=== PATIENT | female | born 1965 | race Caucasian/White ===

== ENCOUNTER → 2018-03-27 | Outpatient (CLI) | payer OTHER | LOC: FIMAGING 09:36 | PROVIDERS: ATTEND Physician Assistant Surgical | DX: M51.16 Intervertebral disc disorders with radiculopathy, lumbar region (principal) ==

== ENCOUNTER → 2018-04-16 | Outpatient (CLI) | payer OTHER | END | disposition home or self-care (01) | LOC: FIMAGING 14:56 | PROVIDERS: ATTEND Internal Medicine | DX: Z12.31 Encounter for screening mammogram for malignant neoplasm of breast (principal) ==

== ENCOUNTER 2018-08-07 15:04 | Emergency (ER) | payer OTHER ==
--- NOTE | 2018-08-07 15:28 | EDPHY ---
H & P Stated Complaint: lower abd pain for 10 days, today episode with blurred vision and high BP Time Seen by Provider: 08/07/18 15:20 HPI/ROS: CHIEF COMPLAINT: Abdominal pain, high blood pressure, blurry vision HISTORY OF PRESENT ILLNESS: Patient is a 53-year-old female who is been having abdominal discomfort for about the last [address] Finch with GI for a history of GERD and takes Pepcid. She is scheduled for follow-up endoscopy in a few weeks. She states that over the last 10 days she has developed some pain in her lower abdominal/waist area. She notices it when she stands up and feels that it is tight or pulling sensation. No dysuria. She saw her primary yesterday who checked a urinalysis that was negative. She has not had any tenderness. No fevers. No diarrhea. No vaginal bleeding or discharge. No vomiting but she has occasionally felt nauseous. She has a history of appendectomy. She also states that occasionally she has epigastric discomfort or fullness sensation. It does not feel similar to her heartburn. She also states that today she noticed her blood pressure was elevated and then felt like she was having blurry vision in both eyes. That has since resolved. No pain. 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 No recent trauma. No erythema. Severity: Moderate REVIEW OF SYSTEMS: Constitutional: denies: chills, fever, recent illness, recent injury EENTM: See HPI Respiratory: denies: cough, shortness of breath Cardiac: denies: chest pain, irregular heart rate, lightheadedness, palpitations Gastrointestinal/Abdominal: See HPI Genitourinary: denies: dysuria, frequency, hematuria, pain Musculoskeletal: denies: joint pain, muscle pain Skin: denies: lesions, rash, jaundice, bruising Neurological: denies: headache, numbness, paresthesia, tingling, dizziness, weakness Hematologic/Lymphatic: denies: blood clots, easy bleeding, easy bruising Immunologic/allergic: denies: HIV/AIDS, transplant 10 systems reviewed and negative except as noted EXAM: GENERAL: Well-appearing, well-nourished and in no acute distress. HEAD: Atraumatic, normocephalic. EYES: Pupils equal round and reactive to light, extraocular movements intact, sclera anicteric, conjunctiva are normal. ENT: TMs normal, nares patent, oropharynx clear without exudates. Moist mucous membranes. NECK: Normal range of motion, supple without lymphadenopathy or JVD. LUNGS: Breath sounds clear to auscultation bilaterally and equal. No wheezes rales or rhonchi. HEART: Regular rate and rhythm without murmurs, rubs or gallops. ABDOMEN: Soft, nontender, normoactive bowel sounds. No guarding, no rebound. No masses appreciated. BACK: No CVA tenderness, no spinal tenderness, step-offs or deformities EXTREMITIES: Normal range of motion, no pitting or edema. No clubbing or cyanosis. NEUROLOGICAL: Cranial nerves II through XII grossly intact. Normal speech, normal gait. 5/5 strength, normal movement in all extremities, normal sensation , normal reflexes PSYCH: Normal mood, normal affect. SKIN: Warm, dry, normal turgor, no visible rashes or lesions. Source: Patient - Personal History LMP (Females 10-55): Over 28 Days Ago - Medical/Surgical History Hx Asthma: No Hx Chronic Respiratory Disease: No Hx Diabetes: No Hx Cardiac Disease: No Hx Renal Disease: No Hx Cirrhosis: No Hx Alcoholism: No Hx HIV/AIDS: No Hx Splenectomy or Spleen Trauma: No Other PMH: sx: appy, tonsilectomy, thyroidectomy. thyroid CA with removal, GERD , recurrent corneal ulcerations - Family History Significant Family History: No pertinent family hx - Social History Smoking Status: Never smoked Alcohol Use: Sober Drug Use: None Constitutional: Initial Vital Signs Temperature (C) 36.4 C 08/07/18 15:15 Heart Rate 86 08/07/18 15:15 Respiratory Rate 18 08/07/18 15:15 Blood Pressure 170/118 H 08/07/18 15:15 O2 Sat (%) 94 08/07/18 15:15 O2 Delivery Mode Room Air Allergies/Adverse Reactions: bacitracin [From Neosporin] Allergy (Verified 08/07/18 15:15) Rash bacitracin zinc [From Neosporin] Allergy (Verified 08/07/18 15:15) Rash celecoxib [From Celebrex] Allergy (Verified 08/07/18 15:15) ITCH/FLUSHED erythromycin base [Erythromycin Base] Allergy (Verified 08/07/18 15:15) SEVERE GI Gadolinium-Containing Contrast Medi [Gadolinium-Containing Agents] Allergy ( Verified 08/07/18 15:15) Hives gramicidin D [From Neosporin] Allergy (Verified 08/07/18 15:15) Rash morphine [Morphine] Allergy (Verified 08/07/18 15:15) ELEVATED BLOOD PRESSURE/STIFF NECK neomycin sulfate [From Neosporin] Allergy (Verified 08/07/18 15:15) Rash Penicillins Allergy (Verified 08/07/18 15:15) Rash polymyxin B [From Neosporin] Allergy (Verified 02/15/15 09:25) Rash polymyxin B sulfate [From Neosporin] Allergy (Verified 02/15/15 09:25) Rash prednisolone [Prednisolone] Allergy (Verified 08/07/18 15:15) Itching prednisone [Prednisone] Allergy (Verified 08/07/18 15:15) FLUSHED/REDNESS JOEL/PALLOCK Allergy (Uncoded 08/07/18 15:15) Hives Home Medications: Medication Instructions Recorded Synthroid 75 mcg (RX) 02/15/15 Prevacid 08/07/18 Medical Decision Making - Diagnostics EKG Interpretation: An EKG obtained and was read and documented in trace view. Please see trace view for full reading and report. Sinus rhythm, no acute ischemic changes Imaging Results: Imaging Impressions Abdomen CT 08/07/18 15:25 Impression: 1. Constipation. 2. Multiple noncalcified nodules measuring up to 5 mm. If the patient is a smoker or is high risk, unenhanced low dose chest CT for follow up in 12 months is considered optional. Otherwise, no further follow up is needed per Fleischner Society criteria. 3. Cholelithiasis without evidence of cholecystitis. 4. Additional findings, as above. Findings discussed with VIKY RANDALL 08/07/2018 at 1701. Imaging: Discussed imaging studies w/ at home independent call center agent Radiologist ED Course/Re-evaluation: The pain vision is 30/20 and the right and 70/20 in the left which she states is baseline. 5:20 p.m. we had a long discussion about the CT results. She was unaware previously of gallstones. She has no epigastric tenderness currently. She does state that she occasionally has pain there. She will follow up with Dr. Finch about this as well. No secondary signs of infection on CT scan. Normal lab work today. She is also quite concerned about the pulmonary nodules. She has a history of thyroid cancer and some type of cyst in her right leg/bone. She will follow up with her primary for repeat lung scan in 1 year. Also she reports to me that her vision is completely normal. Her blood pressure is currently 160/80. Differential Diagnosis: Partial list of the Differential diagnosis considered include but were not limited to; constipation, adenitis, ovarian cyst, urinary tract infection, kidney stone and although unlikely based on the history and physical exam, I also considered cholecystitis, peptic ulcer disease, perforation, obstruction, ischemia, volvulus. I discussed these differential diagnoses and the plan with the patient as well as the usual and expected course. The patient understands that the diagnosis is provisional and that in medicine we are not always correct and that further workup is often warranted. Usual and customary warnings were given. All of the patient's questions were answered. The patient was instructed to return to the emergency department should the symptoms at all worsen or return, otherwise to followup with the physician as we discussed. - Data Points Laboratory Results: 08/07/18 15:56 POC Sodium 144 mEq/L mEq/L (135-145) POC Potassium 3.6 mEq/L mEq/L (3.3-5.0) POC Chloride 107.0 mEq/L mEq/L (97-110) POC Total CO2 28 mEq/L mEq/L (22-31) POC BUN 12 mg/dL mg/dL (7-23) POC Creatinine 0.8 mg/dL mg/dL (0.6-1.0) POC Glucose 100 mg/dL mg/dL (70-100) POC Calcium 9.6 mg/dL mg/dL (8.5-10.4) POC Total Bilirubin 1.1 mg/dL mg/dL (0.1-1.4) POC AST 24 IU/L IU/L (14-46) POC ALT 19 IU/L IU/L (9-52) POC Alk Phosphatase 70 IU/L IU/L (38-126) POC Total Protein 7.6 g/dL g/dL (6.3-8.2) POC Albumin 4.1 g/dL g/dL (3.5-5.0) Point of Care Test Results: CBC CBC Collection Date 10/16/18 CBC Collection Time 15:45 WBC 8.7 RBC 4.71 HGB 13.6 HCT 40.3 PLT 325 Neut # 5.3 Neut 60.8 LYMPH # 2.8 LYMPH 32.2 Other WBC # 0.6 Other WBC 7.0 MCV 85.6 Chemistry 08/07/18 15:56 POC Sodium 144 mEq/L mEq/L (135-145) POC Potassium 3.6 mEq/L mEq/L (3.3-5.0) POC Chloride 107.0 mEq/L mEq/L (97-110) POC Total CO2 28 mEq/L mEq/L (22-31) POC BUN 12 mg/dL mg/dL (7-23) POC Creatinine 0.8 mg/dL mg/dL (0.6-1.0) POC Glucose 100 mg/dL mg/dL (70-100) POC Calcium 9.6 mg/dL mg/dL (8.5-10.4) POC Total Bilirubin 1.1 mg/dL mg/dL (0.1-1.4) POC AST 24 IU/L IU/L (14-46) POC ALT 19 IU/L IU/L (9-52) POC Alk Phosphatase 70 IU/L IU/L (38-126) POC Total Protein 7.6 g/dL g/dL (6.3-8.2) POC Albumin 4.1 g/dL g/dL (3.5-5.0) Urine Dip Collection Date 08/07/18 Collection Time 16:00 Specific Raymond (1.002-1.030) 1.010 PH (5.0-7.5) 7.5 Leukocytes (Negative) Negative Nitrites (Negative) Negative Protein (Negative) Negative Glucose (Negative) Negative Ketones (Negative) Negative Urobilnogen (0.2-1.0 EU) 0.2 Bilirubin (Negative) Negative Blood (Negative) Trace Departure - Departure Disposition: Home, Routine, Self-Care Clinical Impression: Abdominal pain Qualifiers: Abdominal location: unspecified location Qualified Code(s): R10.9 - Unspecified abdominal pain Condition: Fair Instructions: Acute Abdominal Pain (ED) Additional Instructions: Repeat your lung CT scan in 1 year to follow up on the lung nodules. Referrals: Deneen Corley MD [Primary Care Provider] - 3-4 days, if not improved Liv Clark MD [Medical Doctor] - As per Instructions
[2018-08-07] MEDS ORDERED: IOPAMIDOL (ISOVUE-300) 100 ML BTL ONE (15:34)
--- NOTE | 2018-08-07 15:50 | CPEKG ---
Test Reason : OPEN Blood Pressure : / mmHG Vent. Rate : 071 BPM Atrial Rate : 069 BPM P-R Int : 144 ms QRS Dur : 094 ms QT Int : 367 ms P-R-T Axes : 065 052 044 degrees QTc Int : 399 ms Sinus rhythm Confirmed by Sergey Felix ([id number]) on 08/07/2018 3:50:39 PM Referred By: Confirmed By:Sergey Felix
[2018-08-07 17:32] VITALS: BP 155/85
== END 2018-08-07 17:45 | disposition home or self-care (01) ==
LOC: CED 15:04
DX: K59.00 Constipation, unspecified (principal); K80.20 Calculus of gallbladder without cholecystitis without obstruction; R91.1 Solitary pulmonary nodule; K21.9 Gastro-esophageal reflux disease without esophagitis; Z85.850 Personal history of malignant neoplasm of thyroid
CPT/HCPCS: 74177-PO; 80053-PO; Q9967